=== PATIENT | male | born 1980 | race Caucasian/White ===

== ENCOUNTER → 2019-07-28 | Emergency (ER) | payer BC ==
[~2019-07-28] VITALS: Ht 177.8 cm; Wt 79.5 kg
[~2019-07-28] MED LIST: ADDERALL10 MG PO; ADDERALL20 MG PO; FLEXERIL 1010 MG/TAB PO; FLEXERIL10 MG PO; HYDROCODONE/APAP; MEDROL 4MG DOSPA4 MG PO; NORCO 325 MG-7.1 TAB PO; PERCOCET 325 MG1 TA2 PO; PRINIVIL20 MG PO; VYVANSE60 MG PO; ZANTAC 150MG T150 MG PO
[2019-07-28 09:43] VITALS: BP 112/81; TEMP 97.1
[2019-07-28 12:06] VITALS: PULSE 80
== END ==
LOC: COL.ER 09:39
DX: M51.27 Other intervertebral disc displacement, lumbosacral region (principal); X50.0XXA Overexertion from strenuous movement or load, initial encounter
CPT/HCPCS: J2270